=== PATIENT | female | born 1980 | race Two or more races ===

== ENCOUNTER 2024-12-24 15:34 | Emergency (ER) | payer MEDICAID, SELFPAY ==
[2024-12-24 16:08] VITALS: BP 113/72; PULSE 74; RESP 18; TEMP 36.6; O2SAT 100; BMI 28.9
--- NOTE | 2024-12-24 16:24 | XR_ITS ---
EXAMINATION: XR foot comp RT min 3V ORDERING PROVIDER: BURKE Che HISTORY: Pain TECHNIQUE: 3 radiographs of the right foot were obtained. COMPARISON: None. FINDINGS: There is an irregularity of the medial cuneiform, with an incomplete lucency projecting through medial prominence. No other bony abnormality is identified. There is diffuse osteopenia. Punctate os perineum is identified. There is an ankle joint effusion with moderate to large amount of edema about the ankle and hindfoot. 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 Monckeberg calcifications. IMPRESSION: Irregularity of the medial cuneiform. This may represent partial incorporation of the supernumerary bone* or sequela of age-indeterminate trauma. Correlation with sided tenderness is recommended. Significant hindfoot/ankle soft tissue swelling tissue swelling. Findings suggestive of systemic disease such as diabetes. *(Darshan TE, Doug ANN. [place] of Normal Roentgen Variants that may Simulate Disease, 9th ed, 2013).
--- NOTE | 2024-12-24 16:25 | PD.EDANKLE ---
Lower Extremity Injury RME/HPI General Chief Complaint: Ankle/Foot Injury Stated Complaint: FEET PAIN/SWELLING SP FALL Time Seen by Provider: 12/24/24 16:10 Arrival date/time: 12/24/24 15:34 RME / HPI RME / HPI Narrative: 44-year-old female patient came in for evaluation regarding right foot pain. Patient sustained a fall about 5 to 7 days ago, was walking and twisted the foot resulting in the pain and swelling. Since then has been limping. Patient came here wanted to have an x-ray done. Denies any ankle pain. Denies any other injury. Related Data Previous Rx's ?Medication ?Instructions ?Recorded ibuprofen 800 mg tablet 800 mg PO TID PRN pain #30 tabs 12/24/24 Allergies Allergy/AdvReac Type Severity Reaction Status Date / Time No Known Allergies Allergy Verified 12/24/24 15:37 Review of Systems Review of Systems Narrative Review of Systems: Review of system reviewed and within normal limits except mentioned in HPI ED Exam Narrative Physical exam: VITAL SIGNS: Reviewed. GENERAL APPEARANCE: Alert and interactive, follows commands, no acute distress, HEAD AND FACE: Non-traumatic. ENT: PERRL, pink conjunctivitis, eyelid no trauma, Mucous membrane moist. NECK: Supple, nontender, no nuchal rigidity. CHEST: No tenderness, no crepitus, no paradoxical movement, no retractions. LUNGS: Clear, well ventilated, symmetric, no rales, no wheezing, no ronchi, no stridor, good breath sounds bilaterally. HEART: Regular rate, regular rhythm, no murmur, no gallops. ABDOMEN: Soft, positive bowel sounds, nondistended, no guarding, nontender, no rebound, no masses, RECTAL: Deferred. GENITAL: Deferred. NEUROLOGICAL: Gross motor function intact sensory function intact, Appropriate for age. MUSCULOSKELETAL: low back nontender, full range of motion. EXTREMITIES: Right foot swelling, bruising with tenderness, full range of motion. SKIN: Color pink, dry, no rash, no lacerations, no abrasions, no contusions. LYMPHATICS: Deferred. Course Quality Measures none Orders Category Date Time Status XR foot comp RT min 3V Stat Exams 12/24/24 16:24 Completed Ibuprofen Tab [Motrin Tab] Med 12/24/24 16:24 Discontinued 800 mg PO X1 ONE Vital Signs Vital signs: Vital Signs Temperature 98 F 03/14/25 16:08 Pulse Rate 74 12/24/24 16:08 Respiratory Rate 18 12/24/24 16:08 Blood Pressure 113/72 12/24/24 16:08 Pulse Oximetry (%) 100 12/24/24 16:08 Oxygen Delivery Method Room Air 12/24/24 16:08 Extremity Injury, Lower [facility] Narrative [facility] Narrative:: 44-year-old female patient came in for evaluation regarding right foot pain. Patient sustained a fall about 5 to 7 days ago, was walking and twisted the foot resulting in the pain and swelling. Since then has been limping. Patient came here wanted to have an x-ray done. Denies any ankle pain. Denies any other injury . X-ray of the foot showed Irregularity of the medial cuneiform. This may represent partial incorporation of the supernumerary bone* or sequela of age-indeterminate trauma. Correlation with sided tenderness is recommended. Significant hindfoot/ankle soft tissue swelling tissue swelling. Findings suggestive of systemic disease such as diabetes. *(Darshan TE, Doug ANN. [place] of Normal Roentgen Variants that may Simulate Disease, 9th ed, 2013). Results discussed with the family and patient. Patient data External records reviewed:: None Clinical information provided by:: patient Social determinants that could affect healthcare access:: none Patient has the following chronic illnesses:: None How is presenting disease/condition affected by chronic disease/condition?: exacerbated by Evaluation data The following diagnostics were reviewed and interpreted by me:: radiology exam(s) Lab and/or radiology exams considered but not ordered:: None Interpretation Summary: Results in [facility] Medications / Prescriptions Medications or Prescriptions considered but not ordered:: None Medication administrations:: Medication Administration History Discontinued Medications Ibuprofen (Ibuprofen Tab 400 Mg Tablet) 800 mg PO X1 ONE Stop: 12/24/24 16:25 Last Admin: 12/24/24 16:47 Dose: 800 mg Documented By: OA Ibuprofen Consultations Consultation(s) initiated? (list below): No Diagnosis Extremity Injury, Lower Differential Diagnosis: ankle sprain and strain, fracture of toe and other (Foot sprain, foot fracture) Most likely diagnosis given after review of the tests above:: Foot sprain Admission Indicated Admission indicated?: not indicated Explain why admission is indicated or not indicated:: Stable Admission Request Was there a request for admission?: No Disposition Plan Disposition Plan: Discharge Discharge Attestation Discharge Attestation: The patient and all family members were given an opportunity to ask questions and understood the discharge instructions. Discharge instructions specifically effects, indications for sooner follow up or return to the emergency department, and the expected course of current diagnosis. Patient condition: Stable Discharge Plan Plan Patient Disposition: HOME (Self Care) Disposition Comment: Stable Prescriptions/Referrals Prescriptions/Med Rec: New ibuprofen 800 mg tablet 800 mg PO TID PRN (Reason: pain) Qty: 30 0RF Referrals: No Primary/Family,Physician [Primary Care Provider] - In 1 week Problem List Clinical Impression: Foot sprain Patient/Caregiver Discharge Instructions Discharge Activity: activity as tolerated Education Materials: ED Foot Sprain Additional Instructions: Thank you for the opportunity for serving you today. You are stable for discharged . You are advised to: Follow-up with your PCP in 1 to 2 days Return to ED for worsening of symptoms Increase oral fluids Take medication as prescribed Elevate foot as needed Print Language: English Stand Alone Forms: Jesenia Award Info., Patient Portal Info Letter DANG/BURKE Supervising Physician DANG/BURKE Supervising Physician: MD Marimar
[2024-12-24] MEDS: IBUPROFEN TAB 400 MG TABLET 800 MG PO (16:47)
== END 2024-12-24 19:22 | disposition home or self-care (01) ==
PROVIDERS: Emergency Provider Emergency Medicine
DX: S93.601A Unspecified sprain of right foot, initial encounter (principal); X50.1XXA Overexertion from prolonged static or awkward postures, initial encounter; Y93.01 Activity, walking, marching and hiking
CPT/HCPCS: 73630; 99283; A9270